=== PATIENT | male | born 1990 | race African-American/Black ===

== ENCOUNTER 2017-04-19 08:58 | Emergency (ER) | payer OTHER ==
[~2017-04-19] VITALS: Ht 170.2 cm; Wt 83.3 kg
[~2017-04-19 08:58] MED LIST: BACTRIM,SEPT1 TABLET PO; CLINDAMYCIN HC300 MG PO; MOTRIN800 MG PO; NAPROXEN500 MG PO; PEN-VEE K,VEET500 MG PO; PERCOCET 5/31 TABLET PO
[2017-04-19 10:45] VITALS: BP 110/77
== END 2017-04-19 10:49 | disposition home or self-care (01) ==
LOC: EME 08:58
DX: S90.32XA Contusion of left foot, initial encounter (principal); W01.190A Fall on same level from slipping, tripping and stumbling with subsequent striking against furniture, initial encounter; F17.200 Nicotine dependence, unspecified, uncomplicated
CPT/HCPCS: 73630; 99281; 99283